=== PATIENT | female | born 1940 | race Caucasian/White ===

== ENCOUNTER 2017-09-04 22:27 | Observation (INO) ==
[2017-09-04 23:07] LABS: Basophils # 0.1 K/mcL (0.0-0.2); Basophils % 0.9 %; Eosinophils # 0.2 K/mcL (0.0-0.6); Eosinophils % 1.3 %; Hematocrit 43.9 % (35.3-44.9); Immature Granulocytes % 0.5 % (0-4); Lymphocytes # 2.3 K/mcL (0.6-4.6); Lymphocytes % 15.3 %; Mean Corpuscular HGB Conc 34.2 g/dL (31.6-35.5); Mean Corpuscular Hemoglobin 30.1 pg (28.0-33.3); Mean Platelet Volume 11.6 fL (9.4-12.4); Monocytes # 0.9 K/mcL (0.0-1.3); Monocytes % 6.1 %; Neutrophils # 11.3 K/mcL (1.6-8.9); Platelet Count 353 K/mcL (140-400); Red Blood Count 4.99 M/mcL (3.82-4.97); Red Cell Distribution Width 12.6 % (11.5-14.5); Segmented Neutrophils % 75.9 %
--- NOTE | 2017-09-04 23:25 | Emergency Department Note ---
START Narrative - START START: I examined this patient and my medical decision-making was reviewed with the Resident Physician. I agree with the documented findings, disposition and treatment plan as described except to the extent set forth below. 77-year-old female presents emergency room for concerns for elevated blood pressure. She took her blood pressure this evening because she felt like her heart was racing. She stated it was running in the 140s. She felt slightly short of breath. She denied any chest pain. She took her blood pressure and it was 200 systolic. She does take a blood pressure medicine. She has been compliant with her medications. She feels that her baseline now. She states she never really felt bad earlier. She denies headache. She denies any numbness in her face arm or leg. No vision changes. No vomiting. We will check screening lab work. Her blood pressure has come down in the emergency room. EKG was unchanged.
[2017-09-04 23:29] LABS: BUN/Creatinine Ratio 23 (6-26); Blood Urea Nitrogen 18 mg/dL (8-23); Carbon Dioxide 26 mEq/L (23-29); Chloride 102 mEq/L (98-107); Glucose 119 mg/dL (70-105); Osmolality,Calculated 291 (280-300); Potassium 3.2 mEq/L (3.5-5.1); Sodium 139 mEq/L (136-145); Troponin I < 0.03 ng/mL (< 0.04); eGFR For African Americans > 60 (> 60); eGFR For Non-African Americans > 60 (> 60)
--- NOTE | 2017-09-04 23:57 | Emergency Department Note ---
Disposition Clinical Impression: Hypertension, SOB (shortness of breath) Disposition: Admitted As Inpatient Condition: Fair Time of Disposition: 12:14 General Adult HPI - General Chief complaint: ED General Medical Stated complaint: high BP Time Seen by Provider: 09/04/17 22:34 Source: patient, EMS Limitations: no limitations Nursing Notes Reviewed: Yes Vital Signs Reviewed: Yes - History of Present Illness HPI Narrative: 77-year-old female with a PMHX of hypertension and hyperlipidemia arrived via EMS presenting following a 5-minute episodes of shortness of breath at about 8: 45 PM at home. Patient endorses continued SOB on arrival. No relieving or worsening factors identified. Assoc ssx: Patient noted a sensation of tachycardia at the time.Denies chest pain. No vision changes. No headache. Took blood pressure and heart rate with home monitoring devices. HR at home was 147. Home blood pressure recorded in BP "200s/140s". Patient states she usually has systolic blood pressure in 140s. Endorses a similar episode 3 weeks ago. Endorses adherence to medication prescribed by PCP. Treatment prior to arrival: Patient states she took her BP medication prior today, prior to this episode. Unable to identify any new stressors. Denies drug or alcohol use. Pain Scale: 0 - Related Data Home Medications Medication Instructions Recorded Confirmed Aspirin [Lo-Dose Aspirin EC] 81 mg PO DAILY 09/05/17 09/05/17 Calcium Carbonate [Calcium] 500 mg PO DAILY 09/05/17 09/05/17 Chlorthalidone 25 mg PO DAILY 09/05/17 09/05/17 Ergocalciferol (VITAMIN D2) 1 tab PO DAILY 09/05/17 09/05/17 [Vitamin D] Multivitamin [Multivitamins] 1 each PO DAILY 09/05/17 09/05/17 Pravastatin Sodium [Pravachol] 80 mg PO DAILY 09/05/17 09/05/17 Vitamin E (Dl,Tocopheryl Acet) 200 unit PO DAILY 09/05/17 09/05/17 [Vitamin E] hydroCHLOROthiazide 25 mg PO DAILY 09/05/17 09/05/17 [Hydrochlorothiazide] Allergies Allergy/AdvReac Type Severity Reaction Status Date / Time No Known Allergies Allergy Verified 09/04/17 22:31 Constitutional: Denies: fever, chills Eyes: Denies: vision change Cardiovascular: Reports: as per HPI, other (tachycardia ). Denies: chest pain, palpitations Gastrointestinal: Denies: abdominal pain, nausea, vomiting, hematemesis, melena , hematochezia Genitourinary: Denies: hematuria Musculoskeletal: Reports: other (chronic shoulder pain ). Denies: back pain Neurological: Denies: headache, numbness Psychiatric: Reports: anxiety Past Medical History - Past Medical History Medical history: Reports: hyperlipidemia, hypertension Psychiatric history: Reports: no psych history - Social History Smoking Status: Never smoker Smokeless Tobacco Status: No Alcohol use: Reports: none Drug use: Reports: none Physical Exam Vital Signs Temperature 98.4 F 09/04/17 22:31 Pulse Rate 97 09/04/17 22:31 Respiratory Rate 16 09/04/17 22:31 Blood Pressure 180/99 09/04/17 22:31 O2 Sat by Pulse Oximetry 95 09/04/17 22:31 Temperature 98.4 F 09/04/17 22:31 Pulse Rate 75 09/04/17 23:55 Respiratory Rate 16 09/04/17 23:55 Blood Pressure 129/72 09/04/17 23:55 O2 Sat by Pulse Oximetry 95 09/04/17 23:55 Oxygen Delivery Oxygen Delivery Room Air - General Limitations: no limitations General appearance: alert, in no apparent distress - Head Head exam: atraumatic, normocephalic - Eye Eye exam: Present: PERRL, EOMI, other (injection of the episcleral vessels) - Chest Chest inspection: Present: symmetric chest wall rise. Absent: tenderness - Respiratory Respiratory exam: Absent: respiratory distress, wheezes - Cardiovascular Cardiovascular exam: Present: normal rhythm, +S1, +S2 - Abdominal Exam Abdominal exam: Present: soft, Non-Tender. Absent: distention, guarding - Neurological Exam Neurological exam: Present: alert, oriented X3, reflexes normal (patellar), other (Head tremor. No pronator drift. ) - Expanded Neurological Exam Speech: Present: fluid speech Cranial nerves: EOM function (II, III, IV, ): Normal, facial palsy (VII): Normal, spinal accessory function (XI): Normal, tongue deviation (XII): Normal - Psychiatric Psychiatric exam: Present: normal affect Course - Reevaluation(s) Reevaluation #1: 12:00 AM - No acute baseline mentation changes while in ED. Elevated BPs in ED. Patient does not feel comfortable going home. Amenable to consideration to hospital. - Consultations Consultation #1: 12:14 - Consultation with Dr. Jimenez. Hospitalist accepts admission. Vital Signs Temperature 98.4 F 09/04/17 22:31 Pulse Rate 97 09/04/17 22:31 Respiratory Rate 16 09/04/17 22:31 Blood Pressure 180/99 09/04/17 22:31 O2 Sat by Pulse Oximetry 95 09/04/17 22:31 Temperature 98.4 F 09/04/17 22:31 Pulse Rate 75 09/04/17 23:55 Respiratory Rate 16 09/04/17 23:55 Blood Pressure 129/72 09/04/17 23:55 O2 Sat by Pulse Oximetry 95 09/04/17 23:55 Oxygen Delivery Oxygen Delivery Room Air Medical Decision Making - MDM Narrative Medical decision making narrative: 77-year-old female with hypertension and hyperlipidemia presenting with severe hypertension, with SOB on arrival. Initial assessment of the patient with ECG, CXR, CBC, BMP for evaluation for acute or ongoing target-organ damage. Creatinine 0.79. Continuous vitals monitoring in ED. No acute baseline mentation changes in ED. Exhibited Head tremor in ED. K low in ED, with one- time 40 meQ PO repletion. Concern remains for acuity and unidentified precipitating factor for rapid rise in BP. Patient endorses baseline tremors. Admission for further management. - Lab Data Lab results reviewed: Yes I reviewed the patient's lab results. Result diagrams: 09/04/17 22:51 09/04/17 22:51 Lab Results 09/04/17 09/04/17 Range/Units 22:51 22:51 WBC 14.9 H (4.3-11.1) K/mcL RBC 4.99 H (3.82-4.97) M/mcL Hgb 15.0 (11.5-15.4) g/dL Hct 43.9 (35.3-44.9) % MCV 88.0 (83.0-100.0) fL MCH 30.1 (28.0-33.3) pg MCHC 34.2 (31.6-35.5) g/dL RDW 12.6 (11.5-14.5) % Plt Count 353 (140-400) K/mcL MPV 11.6 (9.4-12.4) fL Immature Gran % 0.5 (0-4) % Seg Neutrophils % 75.9 % Lymphocytes % 15.3 % Monocytes % 6.1 % Eosinophils % 1.3 % Basophils % 0.9 % Neutrophils # 11.3 H (1.6-8.9) K/mcL Lymphocytes # 2.3 (0.6-4.6) K/mcL Monocytes # 0.9 (0.0-1.3) K/mcL Eosinophils # 0.2 (0.0-0.6) K/mcL Basophils # 0.1 (0.0-0.2) K/mcL Sodium 139 (136-145) mEq/L Potassium 3.2 L (3.5-5.1) mEq/L Chloride 102 (98-107) mEq/L Carbon Dioxide 26 (23-29) mEq/L BUN 18 (8-23) mg/dL Creatinine 0.79 (0.60-1.20) mg/dL Est GFR ( Amer) > 60 (> 60) Est GFR (Non-Af Amer) > 60 (> 60) BUN/Creatinine Ratio 23 (6-26) Glucose 119 H (70-105) mg/dL Calculated Osmolality 291 (280-300) Calcium 10.0 (8.6-10.3) mg/dL Troponin I < 0.03 (< 0.04) ng/mL - Radiology Data Radiology results reviewed: Yes I reviewed the patient's radiology results. Impressions Chest X-Ray 09/04/17 22:58 IMPRESSION: No acute disease. D/ / Low Barnett MD / Low Barnett MD Interpreting Provider: Low Barnett MD - EKG Data EKG #1 EKG attestation: Yes I reviewed and interpreted this EKG. EKG results narrative: ED ECG Previous ECG obtained for comparison. Sinus rhythm. Right bundle branch block, unchanged from previous ECG. Ventricular rate 98 WV interval 194 QRS duration 136 QT/QTc 384/439 ms Reviewed with attending.
[2017-09-05] MEDS ORDERED: Naloxone 0.4 MG/ML INJ IVP PRN (00:39)
--- NOTE | 2017-09-05 00:51 | Internal Med History&Physical ---
Date of Encounter: 09/05/17 Time of Encounter: 00:10 Internal Medicine - H&P: HPI Chief complaint: Hypertension Admitted From: Home Plans for Post Hospital Care: Home History of present illness: Ms. Recinos is a 77 year old female present to ER for high blood pressure. Past medical history is significant for hypertension, hyperlipidemia. Patient said in the evening around 7:30 PM, when she checked her blood pressure , the blood pressure is high to 228/180, with heart rate 147. Patient denies headache, vision change, chest pain, nausea. Patient has mild shortness of breath, heart racing, and hands shaking. Patient denies diaphoresis. Patient has no fever, abdominal pain, urination symptoms, or diarrhea. When patient got to the emergency room, her BP get down to 180 and heart rate get down to 97. EKG shows sinus rhythm, with RBBB. The RBBB is not new, she has this problem on her old EKG in 2013 already. Further questioning, patient has hypertension for 10-12 years. Compliant with medications. Patient has one similar episode of high blood pressure with tachycardia about 2 weeks ago, BP high to 190 with heart rate to at 137. Symptoms resolved by itself in about 2 hours. Patient called her PCP, and was told to come to ER when this situation come again. Patient complaint exertional shortness of breath over months. I have discussed CODE STATUS with this patient. She clearly told me she does not want CPR or intubation. DNR DNI placed. Past Med Surg Social Fam HX - Past Medical History Medical history: hyperlipidemia, hypertension Psychiatric history: no psych history - Social History Smoking Status: Never smoker Smokeless Tobacco Status: No Alcohol use: none Drug use: none - Family History Mother Hx Family Cardiac Disorders: Yes (CHF) Internal Medicine - H&P: Meds Aspirin [Lo-Dose Aspirin EC] 81 mg PO DAILY 09/05/17 [History] Calcium Carbonate [Calcium] 500 mg PO DAILY 09/05/17 [History] Chlorthalidone 25 mg PO DAILY 09/05/17 [History] Ergocalciferol (VITAMIN D2) [Vitamin D] 1 tab PO DAILY 09/05/17 [History] Multivitamin [Multivitamins] 1 each PO DAILY 09/05/17 [History] Pravastatin Sodium [Pravachol] 80 mg PO DAILY 09/05/17 [History] Vitamin E (Dl,Tocopheryl Acet) [Vitamin E] 200 unit PO DAILY 09/05/17 [History] hydroCHLOROthiazide [Hydrochlorothiazide] 25 mg PO DAILY 09/05/17 [History] 3 Allergy/AdvReac Type Severity Reaction Status Date / Time No Known Allergies Allergy Verified 09/04/17 22:31 All Systems PM: A 10-system review of systems was performed and is negative for pertinent findings except as documented above in the HPI. - Constitutional Vitals: Temp Pulse Resp BP Pulse Ox 98.4 F 75 16 129/72 95 09/04/17 22:31 09/04/17 23:55 09/04/17 23:55 09/04/17 23:55 09/04/17 23:55 General appearance: Present: A&O X 3, no acute distress, answers questions appropriately - Head Head exam: Present: atraumatic, normocephalic - Eye Eye exam: Present: PERRL, conjuntiva pink, sclera anicteric Pupils: Present: PERRL - Neck Neck exam general surgery: Present: supple, trachea midline. Absent: lymphadenopathy - Respiratory Respiratory exam: Present: CTAB. Absent: accessory muscle use, rales, rhonchi, wheezes - Cardiovascular Cardiovascular exam: Present: RRR, +S1, +S2. Absent: diastolic murmur, gallop, rubs, systolic murmur - GI/Abdominal GI/Abdominal exam: Present: normal bowel sounds, soft, no peritoneal signs. Absent: distended, tenderness - Extremities Exam Extremities exam: Present: warm, radial pulses palpable and symmetrical. Absent : calf tenderness, cyanotic, pedal edema - Neurological Exam Neurological exam: Present: CN II-XII intact, oriented X3, no focal deficits. Absent: pronater drift, facial droop, speech deficit - Skin Skin exam: Present: dry, intact Internal Med - H&P Results - Labs CBC & Chem 7: 09/04/17 22:51 09/04/17 22:51 - Assessment and plan (1) Hypertensive urgency Current Visit: Yes Status: Acute Assessment and plan: Patient has episodes of hypertensive urgency, with BP over 200. No signs of end organ damage. With tachycardia. - Need to rule out secondary hypertension, especially pheochromocytoma, considering patient has hypertension which resolved by itself. - Continuous cardiac monitoring - Closely monitor BP - Check morning TSH, cortisol, and metanephrines (2) Hypertension Current Visit: Yes Status: Acute Assessment and plan: Patient has history of hypertension. Home medication was reviewed, she is on chlorthalidone and hydrochlorothiazide at home. We will stop chlorthalidone and add losartan 25 mg by mouth daily. Closely monitor BP after medication change. Qualifiers: Hypertension type: essential hypertension Qualified Code(s): I10 - Essential (primary) hypertension (3) Hyperlipidemia Current Visit: Yes Status: Acute Assessment and plan: Continue home medication atorvastatin. Qualifiers: Hyperlipidemia type: unspecified Qualified Code(s): E78.5 - Hyperlipidemia , unspecified (4) Tachycardia Current Visit: Yes Status: Acute Assessment and plan: Rhythm is unclear as patient is sinus rhythm at HR 97 in ER. - Continue cardiac monitoring - Check echocardiogram in a.m. (5) Hypokalemia Current Visit: Yes Status: Acute Assessment and plan: Mild hypokalemia. Patient is on diuretics. Potassium supplement was given in ER - Time Spent With Patient Total time spent is greater than 50% in coordination of care (as documented) at patient's floor/unit and/or counseling patient: 40 minutes Greater than 35 minutes
[2017-09-05 05:27] LABS: Basophils # 0.1 K/mcL (0.0-0.2); Basophils % 0.9 %; Eosinophils # 0.1 K/mcL (0.0-0.6); Eosinophils % 0.8 %; Immature Granulocytes % 0.3 % (0-4); Lymphocytes # 2.5 K/mcL (0.6-4.6); Mean Corpuscular HGB Conc 33.5 g/dL (31.6-35.5); Mean Corpuscular Hemoglobin 29.5 pg (28.0-33.3); Mean Corpuscular Volume 88.1 fL (83.0-100.0); Monocytes # 0.7 K/mcL (0.0-1.3); Monocytes % 6.2 %; Neutrophils # 7.3 K/mcL (1.6-8.9); Platelet Count 309 K/mcL (140-400); Red Blood Count 4.54 M/mcL (3.82-4.97); Red Cell Distribution Width 12.6 % (11.5-14.5); Segmented Neutrophils % 68.8 %
[2017-09-05 05:34] LABS: Hemoglobin 13.4 g/dL (11.5-15.4)
[2017-09-05 05:49] LABS: BUN/Creatinine Ratio 25 (6-26); Blood Urea Nitrogen 17 mg/dL (8-23); Calcium 9.3 mg/dL (8.6-10.3); Carbon Dioxide 28 mEq/L (23-29); Chloride 104 mEq/L (98-107); Glucose 98 mg/dL (70-105); Magnesium 1.6 mg/dL (1.6-2.6); Osmolality,Calculated 296 (280-300); Potassium 3.2 mEq/L (3.5-5.1); Sodium 142 mEq/L (136-145); eGFR For African Americans > 60 (> 60); eGFR For Non-African Americans > 60 (> 60)
[2017-09-05 05:57] LABS: Thyroid Stimulating Hormone 1.945 mcIU/mL (0.340-5.600)
[2017-09-05] MEDS: Multivit/Ca/Min/Fe/FA 1 TAB TABLET PO SCH (08:11)
[2017-09-05] MEDS: hydroCHLOROthiazide 25 MG TABLET PO SCH (08:12)
[2017-09-05] MEDS: Aspirin Enteric Coated 81 MG Tablet PO SCH (08:12)
[2017-09-05] MEDS: Cholecalciferol (D-3) 1,000 UNIT TABLET PO SCH (08:12)
[2017-09-05] MEDS: Acetaminophen 325 MG TABLET PO PRN ×2 (10:44→20:12)
--- NOTE | 2017-09-05 16:41 | Electrocardiograph Report ---
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
--- NOTE | 2017-09-05 17:23 | Internal Med Progress Note ---
Date of Encounter: 09/05/17 Time of Encounter: 09:30 - Assessment and plan (1) Hypertensive urgency Current Visit: Yes Status: Acute Assessment and plan: Patient has episodes of hypertensive urgency, 2 -3 episodes that she is aware of in the last 2-3 months, with BP over 200. No signs of end organ damage. With tachycardia. Pt reports pulse 140s at home. - Need to rule out secondary hypertension, especially pheochromocytoma, considering patient has hypertension which resolved by itself. - Continuous cardiac monitoring - Closely monitor BP - TSH WNL, Cortisol 4.9, metanephrines pending. (2) Hypertension Current Visit: Yes Status: Chronic Assessment and plan: Patient has history of hypertension. Home medication was reviewed, she is on chlorthalidone and hydrochlorothiazide at home. Chlorthalidone stopped, Losartan 25mg po daily added. Continue HCTZ. Blood pressure WNL and well controlled. Continue medications after discharge. Qualifiers: Hypertension type: essential hypertension Qualified Code(s): I10 - Essential (primary) hypertension (3) Hyperlipidemia Current Visit: Yes Status: Acute Assessment and plan: Chronic. Continue statin. Qualifiers: Hyperlipidemia type: unspecified Qualified Code(s): E78.5 - Hyperlipidemia , unspecified (4) Tachycardia Current Visit: Yes Status: Acute Assessment and plan: Rhythm is unclear as patient is sinus rhythm at HR 97 in ER. - Continue cardiac monitoring - Echo ordered and still pending. - Pt has outpatient order for Holter monitor from PCP. Pt could benefit from it being placed before the scheduled date of 09/21. Pt can be discharged, re- registered and cardiopulmonary staff can place it before she goes home and results will still go to PCP. (5) Hypokalemia Current Visit: Yes Status: Acute Assessment and plan: Mild hypokalemia. Unchanged from admission. Continue K+ 20meq BID Continue to monitor labs. - Time Spent With Patient Total time spent is greater than 50% in coordination of care (as documented) at patient's floor/unit and/or counseling patient: less than 15 minutes - Subjective Interval history: Pt was seen and assessed at 0930. Pt is pleasant, alert, denies chest pain, dizziness, SOB, abdominal pain, n/v/d, headache. 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 - Constitutional Vitals: Temp Pulse Resp BP Pulse Ox 98.1 F 73 16 146/61 95 09/05/17 15:38 09/05/17 15:38 09/05/17 15:38 09/05/17 15:38 09/05/17 15:38 General appearance: Present: A&O X 3, pleasant, no acute distress, answers questions appropriately - Head Head exam: Present: atraumatic, normocephalic - Eye Eye exam: Present: normal appearance, conjuntiva pink, sclera anicteric - Neck Neck exam general surgery: Present: supple, trachea midline. Absent: lymphadenopathy, tenderness - Respiratory Respiratory exam: Present: CTAB. Absent: accessory muscle use, rales, rhonchi, wheezes - Cardiovascular Cardiovascular exam: Present: RRR, +S1, +S2. Absent: diastolic murmur, gallop, rubs, systolic murmur - GI/Abdominal GI/Abdominal exam: Present: normal bowel sounds, soft. Absent: distended, hepatomegaly, tenderness - Extremities Exam Extremities exam: Present: normal capillary refill, normal inspection, warm, radial pulses palpable and symmetrical. Absent: calf tenderness, cyanotic, pedal edema, tenderness - Neurological Exam Neurological exam: Present: alert, oriented X3, no focal deficits. Absent: facial droop, speech deficit - Skin Skin exam: Present: dry, intact, normal color, warm. Absent: rash Internal Medicine: Result - Labs CBC & Chem 7: 09/05/17 03:55 09/05/17 03:55 Labs: Short CBC 09/05/17 Range/Units 03:55 WBC 10.7 (4.3-11.1) K/mcL Hgb 13.4 D (11.5-15.4) g/dL Hct 40.0 (35.3-44.9) % Plt Count 309 (140-400) K/mcL Neutrophils # 7.3 (1.6-8.9) K/mcL BMP 09/05/17 03:55 Sodium 142 Potassium 3.2 L Chloride 104 Carbon Dioxide 28 BUN 17 Creatinine 0.69 Glucose 98 Calcium 9.3 Consult Discharge Plan - Plan Referrals: Vimal Coronado MD [Primary Care Provider] -
[2017-09-06 04:54] LABS: Basophils # 0.1 K/mcL (0.0-0.2); Basophils % 1.2 %; Eosinophils # 0.4 K/mcL (0.0-0.6); Eosinophils % 4.6 %; Hematocrit 41.2 % (35.3-44.9); Hemoglobin 13.6 g/dL (11.5-15.4); Immature Granulocytes % 0.2 % (0-4); Lymphocytes # 2.9 K/mcL (0.6-4.6); Lymphocytes % 30.9 %; Mean Corpuscular Hemoglobin 29.5 pg (28.0-33.3); Mean Corpuscular Volume 89.4 fL (83.0-100.0); Mean Platelet Volume 11.8 fL (9.4-12.4); Monocytes # 0.7 K/mcL (0.0-1.3); Neutrophils # 5.2 K/mcL (1.6-8.9); Platelet Count 301 K/mcL (140-400); Red Blood Count 4.61 M/mcL (3.82-4.97); Red Cell Distribution Width 12.8 % (11.5-14.5); Segmented Neutrophils % 56.1 %
[2017-09-06 05:14] LABS: BUN/Creatinine Ratio 33 (6-26); Blood Urea Nitrogen 23 mg/dL (8-23); Calcium 9.4 mg/dL (8.6-10.3); Carbon Dioxide 27 mEq/L (23-29); Chloride 107 mEq/L (98-107); Glucose 92 mg/dL (70-105); Osmolality,Calculated 299 (280-300); Potassium 3.5 mEq/L (3.5-5.1); Sodium 143 mEq/L (136-145); eGFR For African Americans > 60 (> 60); eGFR For Non-African Americans > 60 (> 60)
[2017-09-06] MEDS: Cholecalciferol (D-3) 1,000 UNIT TABLET PO SCH (09:17)
[2017-09-06] MEDS: Aspirin Enteric Coated 81 MG Tablet PO SCH (09:17)
[2017-09-06] MEDS: hydroCHLOROthiazide 25 MG TABLET PO SCH (09:17)
[2017-09-06] MEDS: Multivit/Ca/Min/Fe/FA 1 TAB TABLET PO SCH (09:17)
[2017-09-06 11:07] VITALS: BP 135/69
--- NOTE | 2017-09-06 11:13 | Discharge Summary ---
- NOTES TO OUTPATIENT PROVIDER Notes to Outpatient Provider: Follow-up with holter monitor and BP Orders not resulted at time of discharge: Pending orders 09/05/17 03:55 Metanephrines, Plasma (Free) AM 0400 Date of Encounter: 09/06/17 Time of Encounter: 11:12 - Discharge Diagnosis (1) Hypertensive urgency Priority: Primary Status: Acute Assessment and Plan: has known hx HTN. Reported 2 -3 episodes with SBP over 200 at home. Max SBP this hospitalization 180. Etiology unknown at this time; BP normalized and remained normotensive with resuming home BP medications and adding low-dose ARB. Recommend follow-up with PCP within 3-5 days for BP recheck. Continue home HCTZ, losartan added. (2) Tachycardia Priority: Primary Status: Acute Assessment and Plan: Patient reported HRs up in 140s at home. Max recorded heart rate 97 this hospitalization. TTE with EF 65%, no valvular or wall motion abnormalities. Outpatient Holter monitor was planned prior to hospitalization. Holter monitor will be placed on patient prior to discharge with results to be routed to primary care doctor. (3) Hyperlipidemia Priority: Secondary Status: Chronic Assessment and Plan: Chronic. Continue statin. Qualifiers: Hyperlipidemia type: unspecified Qualified Code(s): E78.5 - Hyperlipidemia , unspecified (4) Hypokalemia Priority: Primary Status: Acute Assessment and Plan: Mild hypokalemia. Resolved with replacement. Recommend repeat CMP with PCP outpatient. Hospital course: See assessment and plan for hospital course Discharge discussed with: patient - Time Spent with Patient Total time spent providing and/or coordinating discharge services: 33 minutes - Discharge Medications Prescriptions: Losartan [Cozaar] 25 mg PO DAILY #30 tablet Home Medications: Aspirin [Lo-Dose Aspirin EC] 81 mg PO DAILY 09/05/17 [History] Calcium Carbonate [Calcium] 500 mg PO DAILY 09/05/17 [History] Ergocalciferol (VITAMIN D2) [Vitamin D] 1 tab PO DAILY 09/05/17 [History] Multivitamin [Multivitamins] 1 each PO DAILY 09/05/17 [History] Pravastatin Sodium [Pravachol] 80 mg PO DAILY 09/05/17 [History] Vitamin E (Dl,Tocopheryl Acet) [Vitamin E] 200 unit PO DAILY 09/05/17 [History] hydroCHLOROthiazide [Hydrochlorothiazide] 25 mg PO DAILY 09/05/17 [History] Losartan [Cozaar] 25 mg PO DAILY #30 tablet 09/06/17 [Rx] Allergies/Adverse Reactions: 3 Allergy/AdvReac Type Severity Reaction Status Date / Time No Known Allergies Allergy Verified 09/05/17 10:06 Date of admission: 09/05/17 00:15 Primary care physician: Vimal Coronado MD Discharging clinician: Sana Crews Anticipated date of discharge: 09/06/17 - Constitutional Vitals: Temp Pulse Resp BP Pulse Ox 98.0 F 80 19 135/69 95 09/06/17 11:06 09/06/17 11:06 09/06/17 11:06 09/06/17 11:06 09/06/17 11:06 General appearance: Present: A&O X 3, pleasant, no acute distress, answers questions appropriately - Head Head exam: Present: atraumatic, normocephalic - Eye Eye exam: Present: PERRL, conjuntiva pink, sclera anicteric Pupils: Present: PERRL - Neck Neck exam general surgery: Present: supple, trachea midline. Absent: lymphadenopathy - Respiratory Respiratory exam: Present: CTAB. Absent: accessory muscle use, rales, rhonchi, wheezes - Cardiovascular Cardiovascular exam: Present: RRR, +S1, +S2. Absent: diastolic murmur, gallop, rubs, systolic murmur - GI/Abdominal GI/Abdominal exam: Present: normal bowel sounds, soft, no peritoneal signs. Absent: distended, tenderness - Extremities Exam Extremities exam: Present: warm, radial pulses palpable and symmetrical. Absent : calf tenderness, cyanotic, pedal edema - Neurological Exam Neurological exam: Present: CN II-XII intact, oriented X3, no focal deficits. Absent: pronater drift, facial droop, speech deficit - Skin Skin exam: Present: dry, intact - Patient Status Disposition: Home, Self-Care Condition: Good Functional capacity at discharge: independent ambulation - Discharge Instructions Instructions: Losartan (By mouth), Holter Monitoring (DC) Follow Up With: Vimal Coronado MD [Primary Care Provider] - - Diet and Activity Activity: increase activity as tolerated Diet: advance to your usual diet
[2017-09-08 14:51] LABS: Metanephrine, Plasma 0.15 nmol/L (0.00-0.49)
== END 2017-09-06 12:33 | disposition home or self-care (01) ==
LOC: EMEROO 22:27 → 3BNU 22:27
PROVIDERS: ADMIT Internal Medicine; ATTEND Internal Medicine